=== PATIENT | female | born 1985 | race Caucasian/White ===

== ENCOUNTER 2016-06-25 23:08 | Emergency (ER) | payer MEDICAID ==
[~2016-06-25] VITALS: Ht 152.4 cm; Wt 45.0 kg
[~2016-06-25 23:08] MED LIST: AMOX500T PO; MOME17I EACH NARE; PROM6.257 PO
[2016-06-25 23:24] VITALS: BP 135/89; PULSE 102; RESP 18; TEMP 98.2; O2SAT 100
[2016-06-25] MEDS ORDERED: LEXA10TA PO (23:31)
[2016-06-25 23:54] LABS: AUTOMATED NEUTROPHIL # 10.9 TH/MM3 (1.8-7.7); BASOPHIL % 0.3 % (0.0-2.0); EOSINOPHIL # 0.3 TH/MM3 (0-0.4); EOSINOPHIL % 2.3 % (0.0-4.0); HEMATOCRIT 38.9 % (35.0-46.0); HEMO FLAGS DIFF FINAL; LYMPH % 15.2 % (9.0-44.0); LYMPHOCYTE # 2.2 TH/MM3 (1.0-4.8); MEAN CELL VOLUME 90.4 FL (80.0-100.0); MEAN CORPUSCULAR HEMOGLOBIN 29.7 PG (27.0-34.0); MEAN CORPUSCULAR HGB CONC 32.9 % (32.0-36.0); MONO % 7.2 % (0.0-8.0); PLATELET COUNT 332 TH/MM3 (150-450); RED CELL DISTRIBUTION WIDTH 13.1 % (11.6-17.2); WHITE BLOOD COUNT 14.6 TH/MM3 (4.0-11.0)
[2016-06-26 00:13] LABS: ANION GAP 9 MEQ/L (5-15); AST (GOT) 12 U/L (15-37); BICARBONATE 26.3 MEQ/L (21.0-32.0); BLOOD UREA NITROGEN 10 MG/DL (7-18); CHLORIDE 101 MEQ/L (98-107); GLOMERULAR FILTRATION RATE 117 ML/MIN (>89); POTASSIUM 3.5 MEQ/L (3.5-5.1); SODIUM (NA) 136 MEQ/L (136-145)
[2016-06-26 00:16] LABS: ALKALINE PHOSPHATASE 60 U/L (45-117); ALT (GPT) 23 U/L (10-53); TOTAL BILIRUBIN ADULT 0.3 MG/DL (0.2-1.0)
[2016-06-26 00:21] LABS: AMPHETAMINE, URINE NEG (NEG); BARBITURATES, URINE NEG (NEG); COCAINE, URINE NEG (NEG)
--- NOTE | 2016-06-26 01:03 | PD ---
HPI Chief Complaint: Psychiatric Symptoms Time Seen by Provider: 23:22 Travel History International Travel<30 days: No Contact w/Intl Traveler<30days: No Traveled to known affect area: No History of Present Illness HPI 31-year-old woman with history of anxiety and depression presents emergent from with increased anxiety symptoms, increased depression and suicidal thoughts. Symptoms started tonight after taking Lexapro for the first time. She describes racing, suicidal thoughts in her head. She's been more anxious and starting it as well. She took her first pill this evening. She called 911 and was placed under [place] act by law enforcement. She denies any recent illness or injury. No other complaints. History Past Medical History Narrative Medical Anxiety, depression Tetanus Vaccination: Unknown Influenza Vaccination: No Past Surgical History Surgical History: No Previous Surgery Social History Alcohol Use: No Tobacco Use: No Allergies-Medications (Allergen,Severity, Reaction): Coded Allergies: Naproxen (Verified Allergy, Intermediate, GI bleed, 06/25/16) Reported Meds & Prescriptions Reported Meds & Active Scripts Active Reported Lexapro (Escitalopram Oxalate) 10 Mg Tab 10 Mg PO DAILY Review of Systems Except as stated in HPI: all other systems reviewed are Neg Physical Exam Narrative GENERAL: Well-appearing 31-year-old woman, no acute distress. SKIN: Warm and dry. CARDIOVASCULAR: Warm and well perfused. RESPIRATORY: Normal rate and effort. MUSCULOSKELETAL: No deformities. NEUROLOGICAL: Awake and alert. No gross deficits. Psychiatric: Flat affect. Endorsing suicidal thoughts. Data Data Last Documented VS Vital Signs Date Time Temp Pulse Resp B/P Pulse Ox O2 Delivery O2 Flow Rate FiO2 06/25/16 23:24 98.2 102 18 135/89 100 Orders Complete Blood Count With Diff (06/25/16 23:22) Comprehensive Metabolic Panel (06/25/16 23:22) Ed Urine Pregnancytest Poc (06/25/16 23:22) Psych Screen (06/25/16 23:22) Drug Screen, Random Urine (06/25/16 23:22) Labs Laboratory Tests Test 06/25/16 23:40 White Blood Count 14.6 TH/MM3 Red Blood Count 4.30 MIL/MM3 Hemoglobin 12.8 GM/DL Hematocrit 38.9 % Mean Corpuscular Volume 90.4 FL Mean Corpuscular Hemoglobin 29.7 PG Mean Corpuscular Hemoglobin 32.9 % Concent Red Cell Distribution Width 13.1 % Platelet Count 332 TH/MM3 Mean Platelet Volume 7.9 FL Neutrophils (%) (Auto) 75.0 % Lymphocytes (%) (Auto) 15.2 % Monocytes (%) (Auto) 7.2 % Eosinophils (%) (Auto) 2.3 % Basophils (%) (Auto) 0.3 % Neutrophils # (Auto) 10.9 TH/MM3 Lymphocytes # (Auto) 2.2 TH/MM3 Monocytes # (Auto) 1.0 TH/MM3 Eosinophils # (Auto) 0.3 TH/MM3 Basophils # (Auto) 0.0 TH/MM3 CBC Comment DIFF FINAL Differential Comment Sodium Level 136 MEQ/L Potassium Level 3.5 MEQ/L Chloride Level 101 MEQ/L Carbon Dioxide Level 26.3 MEQ/L Anion Gap 9 MEQ/L Blood Urea Nitrogen 10 MG/DL Creatinine 0.60 MG/DL Estimat Glomerular Filtration 117 ML/MIN Rate Random Glucose 125 MG/DL Calcium Level 9.3 MG/DL Total Bilirubin 0.3 MG/DL Aspartate Amino Transf 12 U/L (AST/SGOT) Alanine Aminotransferase 23 U/L (ALT/SGPT) Alkaline Phosphatase 60 U/L Total Protein 7.9 GM/DL Albumin 4.3 GM/DL Urine Opiates Screen NEG Urine Barbiturates Screen NEG Urine Amphetamines Screen NEG Urine Benzodiazepines Screen NEG Urine Cocaine Screen NEG Urine Cannabinoids Screen NEG MDM Medical Decision Making Medical Screen Exam Complete: Yes Emergency Medical Condition: Yes Interpretation(s) LABS: CBC remarkable for mild leukocytosis. CMP unremarkable. UA is unremarkable. Differential Diagnosis Adverse effect to medication, anxiety, suicidality, other Narrative Course Medical decision making 31-year-old woman with anxiety and suicidal thoughts. This happened after she took Lexapro for the first time. I think the timing is off, and likely represents more anxiety than any current medication effect. She is under a [place] act. She still endorsing fleeting suicidal thoughts. She has no somatic complaints. She is medically clear for psychiatric evaluation. Mental health screening discussed with the patient. Psychiatric screen ordered. Glynn Hendrix MD June 26, 2016 01:03
[2016-06-26 06:00] VITALS: BP 111/64; PULSE 118; RESP 16; O2SAT 97
[2016-06-26 11:01] VITALS: BP 128/77; PULSE 106; RESP 20; TEMP 97.4; O2SAT 98
--- NOTE | 2016-06-26 14:36 | PD ---
History of Present Illness Chief Complaint: Psychiatric Symptoms Time Seen by Provider: 14:00 Travel History International Travel<30 Days: No Contact w/Intl Traveler<30days: No Known affected area: No Legal Status Legal Status: Aden Act Ad[place] Act Signed By: Leann Aden Act Comment: 2016 @ 2300 History of Present Illness: History of Present Illness HPI 31-year-old woman with history of anxiety and depression who presents to ED on a BA initiated by TEA for evaluation of increased depression and suicidal thoughts. As per the report symptoms started tonight after taking Lexapro for the first time and she was having thoughts about harming herself. EMR is reviewed and no prior contacts with [facility]. Current toxicology is negative. Patient was monitored in secure environment and she did not present any behavioral concerns and no suicidality. Patient is a thin, small female with short hair. Dressed in [facility]. She is maintaining hygiene. her speech is clear and logical. Mood is anxious. there is no indication that she is experiencing any hallucinations, no delusions and no paranoia. There is no suicidal or homicidal ideation. Patient reports symptoms of increased anxiety after she took a single dose of Lexapro. She reports that her chest felt tight and she was having " confusing thoughts" and could not calm herself. She may have had serotogenic activation as well as increase in anxiety. Nevertheless at this time the patient feels better . She is requesting discharge . [facility] Past Medical History Anxiety: Yes Diminished Hearing: No Immunizations Current: No Tetanus Vaccination: Unknown Influenza Vaccination: No ?: Not Past Surgical History Surgical History: No Previous Surgery Psychiatric History Psychiatric History Hx Psychiatric Treatment: DEPRESSION/ ANXIETY Is followed on outpatietn basis History of Inpatient Treatment: No Guns or firearms in home: No Social History female.lives with her . works as a [employer]. Hx Alcohol Use: No Hx Tobacco Use: No Hx Substance Use: No Hx of Substance Use Treatment: No Family Psychiatric History Mother w anxiety Allergies-Medications (Allergen,Severity, Reaction): Coded Allergies: Naproxen (Verified Allergy, Intermediate, GI bleed, 5/8/17) Reported Meds & Prescriptions Reported Meds & Active Scripts Active Reported Lexapro (Escitalopram Oxalate) 10 Mg Tab 10 Mg PO DAILY Review of Systems Except as stated in HPI: all other systems reviewed are Neg Psychiatric: COMPLAINS OF: Anxiety Exam Alert: Yes [place]: Person (ox4) Mood: Anxious Affect: Appropriate Speech: Clear, Logical Eye Contact: Normal Memory Intact: Comment (no impairment) Hallucinations: Other (negative) Delusions: No Suicidal: Ideation (deneis any) Homicidal: Ideation (deneis any) Insight/Judgement Fair. Not impaired. MDM Medical Decision Making Medical Record Reviewed: Yes Assessment/Plan 31 year old female who after having taken a single dose of Lexapro reported increase anxiety as well as increase in thoughts of wanting to hurt herself. patient monitored here in [facility] and she presented no behavioral concerns and no suicidality. She at this time does not present any criteria for BA or for inpatient treatment. Her BA will be lifted. Advised to follow up with outpatient provider. Orders Complete Blood Count With Diff (06/25/16 23:22) Comprehensive Metabolic Panel (06/25/16 23:22) Ed Urine Pregnancytest Poc (06/25/16 23:22) Psych Screen (06/25/16 23:22) Drug Screen, Random Urine (06/25/16 23:22) Diet Regular Basic (06/26/16 Lunch) Results Vital Signs Date Time Temp Pulse Resp B/P Pulse Ox O2 Delivery O2 Flow Rate FiO2 06/26/16 11:01 97.4 106 20 128/77 98 Room Air 06/26/16 06:00 118 16 111/64 97 Room Air 06/25/16 23:24 98.2 102 18 135/89 100 Laboratory Tests Test 06/25/16 23:40 White Blood Count 14.6 Red Blood Count 4.30 Hemoglobin 12.8 Hematocrit 38.9 Mean Corpuscular Volume 90.4 Mean Corpuscular Hemoglobin 29.7 Mean Corpuscular Hemoglobin 32.9 Concent Red Cell Distribution Width 13.1 Platelet Count 332 Mean Platelet Volume 7.9 Neutrophils (%) (Auto) 75.0 Lymphocytes (%) (Auto) 15.2 Monocytes (%) (Auto) 7.2 Eosinophils (%) (Auto) 2.3 Basophils (%) (Auto) 0.3 Neutrophils # (Auto) 10.9 Lymphocytes # (Auto) 2.2 Monocytes # (Auto) 1.0 Eosinophils # (Auto) 0.3 Basophils # (Auto) 0.0 CBC Comment DIFF FINAL Differential Comment Sodium Level 136 Potassium Level 3.5 Chloride Level 101 Carbon Dioxide Level 26.3 Anion Gap 9 Blood Urea Nitrogen 10 Creatinine 0.60 Estimat Glomerular Filtration 117 Rate Random Glucose 125 Calcium Level 9.3 Total Bilirubin 0.3 Aspartate Amino Transf 12 (AST/SGOT) Alanine Aminotransferase 23 (ALT/SGPT) Alkaline Phosphatase 60 Total Protein 7.9 Albumin 4.3 Urine Opiates Screen NEG Urine Barbiturates Screen NEG Urine Amphetamines Screen NEG Urine Benzodiazepines Screen NEG Urine Cocaine Screen NEG Urine Cannabinoids Screen NEG Diagnosis Primary Impression: Anxiety Psychiatrically Cleared: Yes Med/ Other Pt Specific Info: No Change to Meds Disposition: 01 DISCHARGE HOME Condition: Stable Megan Pacheco June 26, 2016 14:36
[2016-06-26 15:02] VITALS: BP 120/67; PULSE 85; RESP 18; TEMP 98.6; O2SAT 99
== END 2016-06-26 16:29 | disposition home or self-care (01) ==
LOC: NEPE 23:08 → NEPJ 06-26 16:29
DX: F41.9 Anxiety disorder, unspecified (principal); F32.9 Major depressive disorder, single episode, unspecified; Z79.899 Other long term (current) drug therapy
CPT/HCPCS: 80053; 80307; 85025; 99283